=== PATIENT | male | born 1970 | race Caucasian/White ===

== ENCOUNTER 2021-10-08 13:09 | Emergency (ER) | payer OTHER | END 2021-10-08 18:20 | disposition home or self-care (01) | LOC: FER 13:09 | DX: T65.91XA Toxic effect of unspecified substance, accidental (unintentional), initial encounter (principal); H10.211 Acute toxic conjunctivitis, right eye; I10 Essential (primary) hypertension; Y92.89 Other specified places as the place of occurrence of the external cause; Y99.0 Civilian activity done for income or pay | CPT/HCPCS: 99283; J7030 ==